=== PATIENT | female | born 1990 | race Caucasian/White ===

== ENCOUNTER 2017-08-24 12:32 | Emergency (ER) | payer OTHER ==
--- NOTE | 2017-08-24 12:58 | ERPHSYRPT ---
- History of Present Illness Time Seen by Provider: 08/24/17 12:48 Historian: patient Patient Subjective Stated Complaint: PT REPORTS CHEST PAIN BEGINNING JINA 1 WK AGO-STATES THAT IT GETS WORSE WHEN IN COLD AIR-PT IS A HAND WASHER-STATES THAT WHEN SHE EATS IT GIVES HER GAS ET HURTS-STATES THIS IS ABNORMAL FOR HER-REPORTS SHE FELL A FEW DAYS AGO-DID NOT FEEL LIKE SHE WAS INJURED AT THE TIME-REPORTS PRODUCTIVE COUGH FOR SOME TIME-UNSURE OF FEVER Triage Nursing Assessment: PT PALE WARM ET [id number] ALL QUESTIONS CORRECTLY-RESP EASY ET NONLABORED-RIGHT RADIAL PULSE REGULAR ET STRONG Physician History: 26-year-old white female arrives with complaint of dull achy pain in her chest substernal region symptoms since Sunday worse since last night she states that last night and today is been sharp and dull is worse with breathing worse when going out the cold air. She does state that she's been short of breath she's had a cough no nausea no vomiting. She states she is tender with palpation in the sternal region. 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 Worsens With: antacids, defecating, eating, exertion, lying down, morphine, movement, nitroglycerin, oxygen, palpation, rest, aspirin, sitting up, change in position Associated Symptoms: shortness of breath, cough, hurts to breathe, No nausea, No vomiting, No palpitations, No heartburn, No abdominal pain, No diaphoresis, No chills, No fever, No fatigue, No weakness, No swelling/lump in chest, No syncope, No rash, No headache, No dizziness, No edema, No back pain Prior Chest Pain/Cardiac Workup: no prior chest pain Aspirin Treatment Today: 81 mg x 4, provided by ED Allergies/Adverse Reactions: Sulfa (Sulfonamide Antibiotics) Allergy (Intermediate, Verified 08/24/17 12:47) Hives Home Medications: Buspirone HCl [Buspar] 10 mg PO BID 08/24/17 [History] Fluoxetine HCl [Prozac] 40 mg PO DAILY 08/24/17 [History] Norgestimate-Ethinyl Estradiol [Trinessa Tablet] 1 tab PO DAILY 08/24/17 [ History] Hx Tetanus, Diphtheria Vaccination/Date Given: Yes Hx Influenza Vaccination/Date Given: No Hx Pneumococcal Vaccination/Date Given: No Immunizations Up to Date: Yes - Review of Systems Constitutional: No Fever, No Chills Eyes: No Symptoms Ears, Nose, & Throat: No Symptoms Respiratory: Dyspnea, Other (pain substernal area with breathing) Cardiac: Chest Pain (substernal pain dull achy) Abdominal/Gastrointestinal: No Abdominal Pain, No Nausea, No Vomiting, No Diarrhea Genitourinary Symptoms: No Dysuria Musculoskeletal: No Back Pain, No Neck Pain Skin: No Rash Neurological: No Dizziness, No Focal Weakness, No Sensory Changes Psychological: No Symptoms Endocrine: No Symptoms All Other Systems: Reviewed and Negative - Past Medical History Pertinent Past Medical History: No Other Medical History: AFEBRILE SEIZURE A CHILD - Past Surgical History Past Surgical History: No - Social History Smoking Status: Never smoker Exposure to second hand smoke: No Drug Use: none Patient Lives Alone: No - Female History Hx Last Menstrual Period: JUL 2017 Hx Now: No - Nursing Vital Signs Nursing Vital Signs: Initial Vital Signs Temperature 97.8 F 08/24/17 12:38 Pulse Rate 77 08/24/17 12:38 Respiratory Rate 20 08/24/17 12:38 Blood Pressure 136/81 08/24/17 12:38 O2 Sat by Pulse Oximetry 97 08/24/17 12:38 Pain Scale Pain Intensity 5 - Physical Exam General Appearance: no apparent distress, alert Eye Exam: PERRL/EOMI, eyes nml inspection Ears, Nose, Throat Exam: normal ENT inspection, moist mucous membranes Neck Exam: normal inspection, non-tender, supple, full range of motion Respiratory Exam: normal breath sounds, chest tenderness (sternal area tender with palpation), lungs clear, No respiratory distress Cardiovascular Exam: regular rate/rhythm, normal heart sounds, normal peripheral pulses, capillary refill <2 sec, No murmur, No friction rub, No gallop, No tachycardia, No bradycardia, No irregular, No edema Gastrointestinal/Abdomen Exam: soft, No tenderness, No mass Back Exam: normal inspection, No CVA tenderness, No vertebral tenderness Extremity Exam: normal inspection, normal range of motion Neurologic Exam: alert, oriented x 3, cooperative, normal mood/affect, sensation nml, No motor deficits Skin Exam: normal color, warm, dry SpO2 Interpretation: normal (97%) SpO2: 97 Oxygen Delivery: Room Air - Course Nursing assessment & vital signs reviewed: Yes EKG Interpreted by Me: RATE (66 bpm), Sinus Rhythm, NORMAL AXIS, Other (EKG sinus rhythm, 66 bpm,normal axis, no acute ST or T wave changes normal EKG) - Radiology Exams Chest X-ray Interpretation: Discussed w/ radiologist, Other (chest x-ray: Normal heart , lung, bony thorax) - CT Exams Chest CT Interpretation: Discussed w/radiologist (CTA chest: Negative pulmonary embolism, negative acute cardiopulmonary abnormalities) Ordered Tests: Active Orders 24 hr Category Date Time Status Corn Popper STAT Care 08/24/17 12:53 Active EKG-ER Only STAT Care 08/24/17 12:53 Active IV Insertion STAT Care 08/24/17 12:53 Active CHEST 1 VIEW (PORTABLE) Stat Exams 08/24/17 12:53 Completed CHEST WITH CONTRAST [CT] Stat Exams 08/24/17 14:07 Completed AMYLASE Stat Lab 08/24/17 13:06 Completed CBC W DIFF Stat Lab 08/24/17 13:06 Completed CMP Stat Lab 08/24/17 13:06 Completed D-DIMER QUANTITATION Stat Lab 08/24/17 13:06 Completed HCG QUALITATIVE,SERUM Stat Lab 08/24/17 13:06 Completed LIPASE Stat Lab 08/24/17 13:06 Completed TROPONIN Q3H Lab 08/24/17 13:06 Completed TROPONIN Q3H Lab 08/24/17 16:13 Completed TROPONIN Q3H Lab 08/24/17 19:00 Ordered TROPONIN Q3H Lab 08/24/17 22:00 Ordered TROPONIN Q3H Lab 08/25/17 01:00 Ordered Medication Summary Discontinued Medications Generic Name Dose Route Start Last Admin Trade Name Freq PRN Reason Stop Dose Admin Aspirin 324 mg 08/24/17 13:54 08/24/17 13:57 Baby Aspirin 81 Mg Chew PO 08/24/17 13:55 324 mg STAT ONE Administration Aspirin Confirm 08/24/17 13:56 Baby Aspirin 81 Mg Chew Administered 08/24/17 13:57 Dose 324 mg .ROUTE .STK-MED ONE Lab/Rad Data: Laboratory Result Diagrams 08/24/17 13:06 08/24/17 13:06 Laboratory Results 08/24/17 08/24/17 08/24/17 Range/Units 16:13 13:06 13:06 WBC (4.0-10.5) K/mm3 RBC (4.1-5.4) M/mm3 Hgb (12.0-16.0) gm/dl Hct (35-47) % MCV (78-100) fl MCH (26-32) pg MCHC (32-36) g/dl RDW (11.5-14.0) % Plt Count (150-450) K/mm3 MPV (6-9.5) fl Gran % (36.0-66.0) % Lymphocytes % (24.0-44.0) % Monocytes % (0.0-12.0) % Eosinophils % (0.00-5.0) % Basophils % (0.0-0.4) % Basophils # (0-0.4) D-Dimer (0-500) ng/mL Sodium (136-145) mEq/L Potassium (3.5-5.1) mEq/L Chloride (98-107) mEq/L Carbon Dioxide (21-32) mEq/L Anion Gap (5-15) MEQ/L BUN (9-20) mg/dL Creatinine (0.55-1.30) mg/dl Estimated GFR ML/MIN Glucose (70-110) MG/DL Calcium (8.5-10.1) mg/dL Total Bilirubin (0.2-1.0) mg/dL AST (15-37) U/L ALT (12-78) U/L Alkaline Phosphatase (46-116) U/L Troponin I < 0.017 < 0.017 (0.000-0.056) ng/ml Serum Total Protein (6.4-8.2) gm/dL Albumin (3.4-5.0) g/dL Amylase (25-115) U/L Lipase (73-393) U/L Serum , Qual NEGATIVE (Negative) 08/24/17 08/24/17 08/24/17 Range/Units 13:06 13:06 13:06 WBC 8.7 (4.0-10.5) K/mm3 RBC 3.99 L (4.1-5.4) M/mm3 Hgb 12.5 (12.0-16.0) gm/dl Hct 37.9 (35-47) % MCV 95.0 (78-100) fl MCH 31.3 (26-32) pg MCHC 33.0 (32-36) g/dl RDW 12.2 (11.5-14.0) % Plt Count 266 (150-450) K/mm3 MPV 10.4 H (6-9.5) fl Gran % 59.3 (36.0-66.0) % Lymphocytes % 33.6 (24.0-44.0) % Monocytes % 5.5 (0.0-12.0) % Eosinophils % 1.4 (0.00-5.0) % Basophils % 0.2 (0.0-0.4) % Basophils # 0.02 (0-0.4) D-Dimer 560.29 H* (0-500) ng/mL Sodium 139 (136-145) mEq/L Potassium 3.7 (3.5-5.1) mEq/L Chloride 104 (98-107) mEq/L Carbon Dioxide 25.4 (21-32) mEq/L Anion Gap 13.6 (5-15) MEQ/L BUN 16 (9-20) mg/dL Creatinine 0.93 (0.55-1.30) mg/dl Estimated GFR > 60 ML/MIN Glucose 95 (70-110) MG/DL Calcium 8.9 (8.5-10.1) mg/dL Total Bilirubin 0.20 (0.2-1.0) mg/dL AST 33 (15-37) U/L ALT 35 (12-78) U/L Alkaline Phosphatase 67 (46-116) U/L Troponin I (0.000-0.056) ng/ml Serum Total Protein 7.6 (6.4-8.2) gm/dL Albumin 3.6 (3.4-5.0) g/dL Amylase 51 (25-115) U/L Lipase 140 (73-393) U/L Serum , Qual (Negative) - Progress Progress: improved Air Movement: fair Progress Note: 08/24/17 13:54 26-year-old white female arrives with complaint of substernal chest pain worse with breathing worse with palpation described as both dull and sharp symptoms for 4 days worse since last night. Patient's EKG normal sinus rhythm no acute ST or T wave changes normal EKG chest x-ray is normal CBC chemistry troponin are normal awaiting d-dimer. Will give patient aspirin 324 mg by mouth plan on repeat troponin 3 hours after last draw. Consider discharge if normal. 08/24/17 14:08 Patient with mildly elevated d-dimer she has been having chest pain worse with breathing for a week. Will go ahead and obtain CTA chest. 08/24/17 17:13 CTA chest: No pulmonary embolism no acute cardiopulmonary abnormalities. Patient feeling better. Will plan to discharge will write for Naprosyn twice a day with food as needed for pain plenty of fluids. Will have patient take off work tomorrow. Patient to follow-up with your family doctor. - Departure Time of Disposition: 17:10 Departure Disposition: Home Clinical Impression: Non-cardiac chest pain Condition: Fair Critical Care Time: No Referrals: DOCTOR,NO FAMILY [Primary Care Provider] - Additional Instructions: Return home. Plenty of fluids. Naprosyn 500 mg orally twice a day with food as needed for pain #20. Follow-up with your family doctor. Return for acute distress or for severe symptoms. Prescriptions: Naproxen 500 mg [Naprosyn 500 MG] 500 mg PO BID #20 tablet
[2017-08-24 13:11] LABS: BASOPHIL % 0.2 % (0.0-0.4); Basophil (Absolute #) 0.02 (0-0.4); Eosinophil % 1.4 % (0.00-5.0); Eosinophil (Absolute #) 0.12 (0-0.5); Granulocyte Absolute (ANC) 5.14 (1.4-6.9); Granulocytes % 59.3 % (36.0-66.0); Hematocrit 37.9 % (35-47); Hemoglobin 12.5 gm/dl (12.0-16.0); Lymphocyte (Absolute #) 2.92 (1.0-4.6); Lymphocytes % 33.6 % (24.0-44.0); Mean Corpuscular Hemoglobin 31.3 pg (26-32); Mean Platelet Volume 10.4 fl (6-9.5); Monocyte (Absolute #) 0.48 (0.0-1.3); Monocytes % 5.5 % (0.0-12.0); Platelet Count 266 K/mm3 (150-450); Red Blood Count 3.99 M/mm3 (4.1-5.4); Red Cell Distribution Width 12.2 % (11.5-14.0); White Blood Count 8.7 K/mm3 (4.0-10.5)
[2017-08-24 13:33] LABS: ALBUMIN 3.6 g/dL (3.4-5.0); ALKALINE PHOSPHATASE 67 U/L (46-116); AMYLASE 51 U/L (25-115); ANION GAP 13.6 MEQ/L (5-15); BLOOD UREA NITROGEN 16 mg/dL (9-20); CHLORIDE 104 mEq/L (98-107); Calcium 8.9 mg/dL (8.5-10.1); Carbon Dioxide 25.4 mEq/L (21-32); Creatinine 1 0.93 mg/dl (0.55-1.30); EST GLOMERULAR FILTRATION RATE > 60 ML/MIN; Glucose 95 MG/DL (70-110); LIPASE 140 U/L (73-393); Potassium 3.7 mEq/L (3.5-5.1); SGOT/AST 33 U/L (15-37); SGPT/ALT 35 U/L (12-78); SODIUM 139 mEq/L (136-145); Total Protein 7.6 gm/dL (6.4-8.2)
--- NOTE | 2017-08-24 13:46 | XRAY ---
Indication: Sternal pain with swallowing food/water. Comparison: None Portable chest demonstrates normal heart, lungs, and bony thorax.
[2017-08-24] MEDS ORDERED: BABY ASPIRIN 81 MG CHEW PO ONE (13:54)
[2017-08-24] MEDS ORDERED: BABY ASPIRIN 81 MG CHEW ONE (13:56)
--- NOTE | 2017-08-24 14:57 | XRAY ---
Indication: Chest pain. Elevated d-dimer. Multiple contiguous axial images obtained through the chest using 80 cc Isovue 370 contrast and PE protocol. Comparison: None There is satisfactory opacification of the pulmonary arteries. No filling defect or pulmonary embolus. Heart is not enlarged. Aorta is normal in course and caliber. No pathologic mediastinal/hilar lymphadenopathy. Lungs are fully inflated and clear. Bony thorax intact. No suspicious bony lesions. Limited upper abdomen including adrenal glands are unremarkable. Impression: Negative pulmonary embolus. No acute cardiopulmonary abnormalities. CT DI 23.31
[2017-08-24 15:04] VITALS: O2SAT 97
[2017-08-24 17:27] VITALS: BP 127/74; PULSE 71
== END 2017-08-24 17:32 | disposition home or self-care (01) ==
LOC: ED 12:32
DX: R07.89 Other chest pain (principal)
CPT/HCPCS: 36000; 36415; 71045; 71260; 80053; 82150; 83690; 84484; 84703; 85025; 85379; 93005; 93041; 99284; A9270-GY